=== PATIENT | female | born 2000 | race Caucasian/White ===

== ENCOUNTER 2022-05-06 12:43 | Emergency (ER) | payer BC ==
[~2022-05-06] VITALS: Ht 160 cm; Wt 63.5 kg
[2022-05-06] MEDS ORDERED: AMOXICILLIN500 MG PO ×4 (13:14→13:21)
== END 2022-05-06 14:00 | disposition home or self-care (01) ==
LOC: ER 13:34
DX: J02.9 Acute pharyngitis, unspecified (principal); S60.511A Abrasion of right hand, initial encounter; W25.XXXA Contact with sharp glass, initial encounter
CPT/HCPCS: 83518; 87070; 87186; 99282